=== PATIENT | male | born 1955 | race Caucasian/White ===

== ENCOUNTER 2016-09-30 15:19 | Emergency (ER) | payer OTHER ==
[2016-09-30] MEDS ORDERED: Permethrin 5% Cream(60 gm) TOP ONE (15:43)
--- NOTE | 2016-09-30 15:52 | C.PDOC ---
History Of Present Illness 61-year-old homeless male, PMHx includes EtOH Abuse, presents to the emergency department with complaints of right testicular swelling and left knee pain over the past few months. Patient denies any new symptoms at this time. No weakness/ numbness, fevers, chills, dysuria, hematuria, back pain or any other associated symptoms. No other complaints at this time. Time Seen by Provider: 09/30/16 15:25 Chief Complaint (Nursing): Substance Abuse Past Medical History Reviewed: Historical Data, Nursing Documentation, Vital Signs Vital Signs: Last Vital Signs Temp 98 F 09/30/16 17:52 Pulse 94 H 09/30/16 17:52 Resp 18 09/30/16 17:52 BP 127/76 09/30/16 17:52 Pulse Ox 94 L 09/30/16 17:52 - Medical History PMH: Hiatal Hernia Family History: States: Unknown Family Hx - Social History Hx Tobacco Use: Yes Hx Alcohol Use: Yes Hx Substance Use: No (DENIED) - Immunization History Hx Tetanus Toxoid Vaccination: No Hx Influenza Vaccination: No Hx Pneumococcal Vaccination: No Review Of Systems Except As Marked, All Systems Reviewed And Found Negative. Constitutional: Negative for: Fever, Chills Respiratory: Negative for: Shortness of Breath Gastrointestinal: Negative for: Nausea, Vomiting Genitourinary: Positive for: Other (testicular swelling, right.). Negative for : Dysuria, Frequency, Incontinence, Hematuria Musculoskeletal: Positive for: Leg Pain Skin: Negative for: Rash Neurological: Negative for: Weakness, Numbness, Headache, Dizziness Physical Exam - Physical Exam Appears: Non-toxic, No Acute Distress, Other (disheveled) Skin: Warm, Dry, Rash (scattered erythematous macular rash with excoriation to lower abdomen, dorsal hands, lower legs. No cellulitis.) Head: Atraumatic, Normacephalic Eye(s): bilateral: PERRL Oral Mucosa: Moist Neck: Trachea Midline, Supple Chest: Symmetrical Cardiovascular: Rhythm Regular Respiratory: No Decreased Breath Sounds, No Accessory Muscle Use, No Rales, No Rhonchi, No Stridor, No Wheezing Gastrointestinal/Abdominal: Soft, No Tenderness, No Distention, No Guarding Back: No CVA Tenderness Male Genital: Other (LARGE RIGHT INGUINAL HERNIA, NON-REDUCIBLE) Extremity: Tenderness (mild, left knee with mild diffuse edema. no palpable deformity. No erythema, no warmth.), No Pedal Edema, No Calf Tenderness, No Deformity Extremity: Bilateral: Atraumatic Neurological/Psych: Oriented x3, Normal Speech ED Course And Treatment O2 Sat by Pulse Oximetry: 94 - CT Scan/US testicular US Other Rad Studies (CT/US): Radiology Report Reviewed CT/US Interpretation: Creator : Keven Ware. Dictator : Keven Ware. Solution Lead : Visual Training Aide : Keven Ware. Approver2 : Report Date : 2016 16:59:09. My Comment : . HISTORY: Right testicular pain. TECHNIQUE : Realtime sonography through the scrotum with color and doppler flow. COMPARISON: None Available. FINDINGS: RIGHT TESTICLE: Measures 4.7 x 1.6 x 3.7 cm. Normal echotexture and flow. RIGHT EPIDIDYMIS: Epididymal head measures 1 x 0.6 x 0.7 cm. Grossly unremarkable appearance with normal flow. LEFT TESTICLE: Measures 5.6 x 3.1 x 2.4 cm. Normal echotexture and flow. LEFT EPIDIDYMIS: Epididymal head measures 1.3 x 1.1 x 0.9 cm. Grossly unremarkable appearance with normal flow. HYDROCELE: Right-sided hydrocele seen. VARICOCELE: None. OTHER FINDINGS: This suspicious for right-sided inguinal hernia with bowel extending to the right aspect of the scrotum sac. IMPRESSION : No evidence of torsion. Heterogeneous echotexture of the testicles without evidence of discrete mass lesion. Right-sided hydrocele and possible right hernia with bowel extending to the right aspect of the scrotum sac. If clinically warranted further assessment by CT may be obtained. Progress Note: On re-evaluation, pt is resting comfortably, not in any apparent distress. Afebrile, hemodynamicaly stable. Non-toxic. Abd: benign, (-) guarding, (-) rebound, (-) localized tenderness. : pt has clinical findings c /w Right inguinal hernia, chronic, noted on previous exams, no evidence of strangulation. NO skin changes. Case discussed, results review with ED attending, no further testing recommend, discharge with outpt f/u recommend at this time. Testicular US results review and B/L testicular blood flow noted. Case discussed and pt was evaluated by fixed income trading vice president, no acute abnormalities and discharge with outpt /elective surgery recommend. Pt has clinical findings c/w chronic Right inguinal hernia, left knee arthralgia s/o old trauma, rash r/o scabies, homeless. Pt advised. ref. to F/u with Clinic and Surgery in 1-2 days fo rre-eavl. return to ED if any worsening or new changes. Medical Decision Making Medical Decision Making: Prior Visits Notes and records from previous visits were reviewed. Patient seen and evaluated in ED for same complaint, multiple times in the past. Disposition Counseled Patient/Family Regarding: Studies Performed, Diagnosis, Need For Followup - Disposition Referrals: [facility] [Outside] [facility] [Outside] Disposition: HOME/ ROUTINE Disposition Time: 17:02 Condition: STABLE Instructions: Scabies (ED), Inguinal Hernia (ED), Knee Pain (ED), Groin Pain ( ED) - Clinical Impression Clinical Impression: Inguinal hernia, Arthralgia of knee, Scabies - Scribe Statement The provider has reviewed the documentation as recorded by the Nazario Casillas All medical record entries made by the Amandaibpb were at my direction and personally dictated by me. I have reviewed the chart and agree that the record accurately reflects my personal performance of the history, physical exam, medical decision making, and the department course for this patient. I have also personally directed, reviewed, and agree with the discharge instructions and disposition.
[2016-09-30 16:14] VITALS: RESP 18; O2SAT 94
--- NOTE | 2016-09-30 17:00 | US ---
HISTORY: Right testicular pain TECHNIQUE: Realtime sonography through the scrotum with color and doppler flow. COMPARISON: None Available. FINDINGS: RIGHT TESTICLE: Measures 4.7 x 1.6 x 3.7 cm. Normal echotexture and flow. RIGHT EPIDIDYMIS: Epididymal head measures 1 x 0.6 x 0.7 cm. Grossly unremarkable appearance with normal flow. LEFT TESTICLE: Measures 5.6 x 3.1 x 2.4 cm. Normal echotexture and flow. LEFT EPIDIDYMIS: Epididymal head measures 1.3 x 1.1 x 0.9 cm. Grossly unremarkable appearance with normal flow. HYDROCELE: Right-sided hydrocele seen. VARICOCELE: None. OTHER FINDINGS: This suspicious for right-sided inguinal hernia with bowel extending to the right aspect of the scrotum sac IMPRESSION: No evidence of torsion. Heterogeneous echotexture of the testicles without evidence of discrete mass lesion. Right-sided hydrocele and possible right hernia with bowel extending to the right aspect of the scrotum sac. If clinically warranted further assessment by CT may be obtained.
[2016-09-30 17:45] LABS: URINE BILIRUBIN NEGATIVE (NEGATIVE); URINE BLOOD NEGATIVE (NEGATIVE); URINE COLOR Straw (YELLOW); URINE GLUCOSE (UA) NORMAL (Normal); URINE KETONE NEGATIVE (NEGATIVE); URINE LEUKOCYTE ESTERASE NEG Leu/uL (Negative); URINE PROTEIN NEGATIVE (NEGATIVE); URINE UROBILINOGEN NORMAL mg/dL (0.2-1.0); WBC URINE < 1 /hpf (0-5)
[2016-09-30 17:53] VITALS: BP 127/76; PULSE 94; TEMP 98
== END 2016-09-30 18:25 | disposition home or self-care (01) ==
LOC: C.ER 15:19
DX: K40.90 Unilateral inguinal hernia, without obstruction or gangrene, not specified as recurrent (principal); M25.562 Pain in left knee; B86 Scabies

== ENCOUNTER 2016-11-01 23:26 | Emergency (ER) | payer OTHER ==
[2016-11-02] MEDS ORDERED: Permethrin 5% Cream(60 gm) TOP ONE (01:35)
[2016-11-02 05:34] VITALS: BP 144/71; PULSE 101; RESP 16; TEMP 99.1; O2SAT 99
--- NOTE | 2016-11-02 05:45 | C.PDOC ---
History Of Present Illness Patient is a 61 year old male with a complaint of a diffuse pruritic rash. Patient states he is scratching all the time. As per triage nurse, patient had several bedbug appearing insects crawling out of his clothing. Denies fever, chills or SOB. Time Seen by Provider: 11/02/16 00:56 Chief Complaint (Nursing): Abnormal Skin Integrity History Per: Patient History/Exam Limitations: no limitations Onset/Duration Of Symptoms: Days Current Symptoms Are (Timing): Still Present Quality Of Symptoms: Itching Recent travel outside of the [place]: No Past Medical History Reviewed: Historical Data, Nursing Documentation, Vital Signs Vital Signs: Last Vital Signs Temp 99.1 F 11/02/16 05:33 Pulse 101 H 11/02/16 05:33 Resp 16 11/02/16 05:33 BP 144/71 11/02/16 05:33 Pulse Ox 99 11/02/16 05:46 - Medical History PMH: Hiatal Hernia Surgical History: No Surg Hx Family History: States: Unknown Family Hx - Social History Hx Tobacco Use: Yes Hx Alcohol Use: Yes Hx Substance Use: No (DENIED) - Immunization History Hx Tetanus Toxoid Vaccination: No Hx Influenza Vaccination: No Hx Pneumococcal Vaccination: No Review Of Systems Constitutional: Negative for: Fever, Chills Respiratory: Negative for: Shortness of Breath Skin: Positive for: Rash (Pruritic) Physical Exam - Physical Exam Appears: Non-toxic Skin: Warm, Dry, Rash (Diffuse, dry, scaly, excoriated) Head: Atraumatic, Normacephalic Oral Mucosa: Moist Chest: Symmetrical, No Tenderness Cardiovascular: Rhythm Regular, No Murmur Respiratory: Normal Breath Sounds, No Rales, No Rhonchi, No Wheezing Gastrointestinal/Abdominal: Soft, No Tenderness Male Genital: Other (Large inguinal scrotal hernia, non tender and non incarcerated) Neurological/Psych: Oriented x3, Normal Speech, Normal Cognition ED Course And Treatment O2 Sat by Pulse Oximetry: 99 (Room air) Pulse Ox Interpretation: Normal Progress Note: Permethrin cream applied. Disposition - Disposition Disposition: HOME/ ROUTINE Disposition Time: 06:34 Condition: STABLE Prescriptions: Hydrocortisone 1% Cream [Cortizone 1% Cream] 1 appl TP BID #2 tube - Clinical Impression Clinical Impression: Scabies - Scribe Statement The provider has reviewed the documentation as recorded by the Scribe Seth Mcleod All medical record entries made by the Amandaibpb were at my direction and personally dictated by me. I have reviewed the chart and agree that the record accurately reflects my personal performance of the history, physical exam, medical decision making, and the department course for this patient. I have also personally directed, reviewed, and agree with the discharge instructions and disposition.
== END 2016-11-02 06:59 | disposition home or self-care (01) ==
LOC: C.ER 23:26
DX: B86 Scabies (principal)

== ENCOUNTER 2017-05-19 23:11 | Emergency (ER) | payer OTHER ==
[2017-05-19 23:27] VITALS: BP 142/73; PULSE 100; RESP 20; TEMP 98.7; O2SAT 99
[2017-05-19] MEDS ORDERED: Permethrin 5% Cream(60 gm) TOP ONE (23:40)
--- NOTE | 2017-05-20 00:05 | C.PDOC ---
History Of Present Illness 62 year old homeless man presents to the ED for evaluation of generalized skin rash for the past 2 weeks. Patient denies fever, chills, nausea, vomiting. Pt has not used any other meds for the itching. Time Seen by Provider: 05/19/17 23:30 Chief Complaint (Nursing): Allergic Reaction History Per: Patient History/Exam Limitations: no limitations Onset/Duration Of Symptoms: Days Current Symptoms Are (Timing): Still Present Location Of Injury: Right: Arm, Leg, Left: Arm, Leg, Anterior: Abdomen, Arm, Leg , Posterior: Arm, Leg Quality Of Symptoms: Itching Recent travel outside of the [place]: No Additional History Per: Patient Past Medical History Reviewed: Historical Data, Nursing Documentation, Vital Signs Vital Signs: Last Vital Signs Temp 98.7 F 05/19/17 23:24 Pulse 100 H 05/19/17 23:24 Resp 20 05/19/17 23:24 BP 142/73 05/19/17 23:24 Pulse Ox 99 05/20/17 00:17 - Medical History PMH: Hiatal Hernia Surgical History: No Surg Hx Family History: States: Unknown Family Hx - Social History Hx Tobacco Use: Yes Hx Alcohol Use: Yes Hx Substance Use: No (DENIED) - Immunization History Hx Tetanus Toxoid Vaccination: No Hx Influenza Vaccination: No Hx Pneumococcal Vaccination: No Review Of Systems Constitutional: Negative for: Fever, Chills Respiratory: Negative for: Cough, Shortness of Breath Gastrointestinal: Negative for: Nausea, Vomiting Skin: Positive for: Rash Neurological: Negative for: Weakness, Numbness Physical Exam - Physical Exam Appears: Non-toxic, Unkempt Skin: Warm, Dry, Other (scattered excoriations diffusely > to both upper and lower extremities ) Head: Atraumatic, Normacephalic Nose: No Discharge, No Deformity Oral Mucosa: Moist Lips: Normal Appearing, No Swelling Neck: Normal ROM, Supple Respiratory: Normal Breath Sounds, No Wheezing Extremity: Normal ROM Neurological/Psych: Oriented x3, Normal Speech, Normal Cognition Gait: Steady ED Course And Treatment O2 Sat by Pulse Oximetry: 99 (On RA) Pulse Ox Interpretation: Normal Progress Note: Plan: - Permethrin 5% 60 gm TOP given to pt with instructions on application Disposition Counseled Patient/Family Regarding: Diagnosis, Need For Followup, Rx Given - Disposition Referrals: [facility] [Outside] Disposition: HOME/ ROUTINE Disposition Time: 00:14 Condition: STABLE Additional Instructions: Use cream from neck to feet and leave on for 10 hrs and rinse in morning Return to ER if worse Instructions: Bed Bugs (ED) Forms: [facility] (Mohawk) - Clinical Impression Clinical Impression: Bedbug bite - PA / DEVELOPMENT EDUCATOR / Resident Statement MD/DO has reviewed & agrees with the documentation as recorded. - Scribe Statement The provider has reviewed the documentation as recorded by the Scribe John Carreno All medical record entries made by the Scribe were at my direction and personally dictated by me. I have reviewed the chart and agree that the record accurately reflects my personal performance of the history, physical exam, medical decision making, and the department course for this patient. I have also personally directed, reviewed, and agree with the discharge instructions and disposition.
== END 2017-05-20 00:21 | disposition home or self-care (01) ==
LOC: C.ER 23:11
DX: S80.862A Insect bite (nonvenomous), left lower leg, initial encounter (principal); S80.861A Insect bite (nonvenomous), right lower leg, initial encounter; S40.862A Insect bite (nonvenomous) of left upper arm, initial encounter; S40.861A Insect bite (nonvenomous) of right upper arm, initial encounter; W57.XXXA Bitten or stung by nonvenomous insect and other nonvenomous arthropods, initial encounter; Z59.0 Homelessness; Z72.0 Tobacco use

== ENCOUNTER 2017-08-11 00:52 | Emergency (ER) | payer OTHER ==
[2017-08-11 00:59] VITALS: BP 130/80; PULSE 80; RESP 14; TEMP 97.5; O2SAT 98
[2017-08-11] MEDS ORDERED: Permethrin 5% Cream(60 gm) TOP ONE (01:12)
--- NOTE | 2017-08-11 01:14 | C.PDOC ---
History Of Present Illness 62 years old homeless male presents to ED for complaints of itching to body for long time. Patient also states that he is looking for a place to rest. Denies any other physical complaints. Time Seen by Provider: 08/11/17 01:04 Chief Complaint (Nursing): Abnormal Skin Integrity History Per: Patient History/Exam Limitations: no limitations Onset/Duration Of Symptoms: Hrs Current Symptoms Are (Timing): Still Present Quality Of Symptoms: Itching Recent travel outside of the [place]: No Past Medical History Reviewed: Historical Data, Nursing Documentation, Vital Signs Vital Signs: Last Vital Signs Temp 97.5 F L 08/11/17 00:57 Pulse 80 08/11/17 00:57 Resp 14 08/11/17 00:57 BP 130/80 08/11/17 00:57 Pulse Ox 98 08/11/17 02:33 - Medical History PMH: Hiatal Hernia Family History: States: Unknown Family Hx - Social History Hx Tobacco Use: Yes Hx Alcohol Use: Yes Hx Substance Use: No (DENIED) - Immunization History Hx Tetanus Toxoid Vaccination: No Hx Influenza Vaccination: No Hx Pneumococcal Vaccination: No Review Of Systems Constitutional: Negative for: Fever, Chills Gastrointestinal: Negative for: Nausea, Vomiting, Abdominal Pain, Diarrhea Skin: Positive for: Other (itching to body ) Neurological: Negative for: Weakness, Numbness Psych: Negative for: Suicidal ideation Physical Exam - Physical Exam Appears: Non-toxic, No Acute Distress, Unkempt, Other (malodorous) Skin: Rash (papular erythematous rash and scabs to bilateral arms, back and lower extremities) Head: Atraumatic, Normacephalic Eye(s): bilateral: Normal Inspection Oral Mucosa: Moist Neck: Normal ROM, Supple Chest: Symmetrical, No Tenderness Cardiovascular: Rhythm Regular Respiratory: Normal Breath Sounds, No Decreased Breath Sounds, No Rales, No Rhonchi, No Wheezing Neurological/Psych: Oriented x3, Normal Speech Gait: Steady ED Course And Treatment O2 Sat by Pulse Oximetry: 98 (RA) Pulse Ox Interpretation: Normal Medical Decision Making Medical Decision Making: Patient with itchy rash appears to be scabies. Permethrin cream ordered for patient. He does not want to get undressed. Cream given. Patient stable for discharge. Disposition Counseled Patient/Family Regarding: Diagnosis, Need For Followup, Rx Given - Disposition Referrals: [facility] [Outside] [facility] [Outside] Disposition: HOME/ ROUTINE Disposition Time: 01:50 Condition: GOOD Instructions: Scabies (DC) Forms: [facility] (East Timorese) - POA Present On Arrival: None - Clinical Impression Clinical Impression: Homelessness, Scabies - PA / EARLY BREASTFEEDING CARE SPECIALIST / Resident Statement MD/DO has reviewed & agrees with the documentation as recorded. - Scribe Statement The provider has reviewed the documentation as recorded by the Scribe Kelly Colón All medical record entries made by the Amandaibpb were at my direction and personally dictated by me. I have reviewed the chart and agree that the record accurately reflects my personal performance of the history, physical exam, medical decision making, and the department course for this patient. I have also personally directed, reviewed, and agree with the discharge instructions and disposition.
== END 2017-08-11 01:55 | disposition home or self-care (01) ==
LOC: C.ER 00:52
DX: B86 Scabies (principal); Z59.0 Homelessness

== ENCOUNTER 2017-08-19 23:56 | Emergency (ER) | payer OTHER ==
[2017-08-20 00:07] VITALS: O2SAT 96
--- NOTE | 2017-08-20 01:58 | C.PDOC ---
History Of Present Illness 62 y/o M presents to ED asking for place to sleep. Contrary to triage, patient denies any pain and states he just wishes to sleep. Time Seen by Provider: 08/20/17 01:46 Chief Complaint (Nursing): Lower Extremity Problem/Injury Past Medical History Vital Signs: Last Vital Signs Temp 98.3 F 08/20/17 00:04 Pulse 82 08/20/17 00:04 Resp 20 08/20/17 00:04 BP Pulse Ox 96 08/20/17 00:04 - Medical History PMH: Hiatal Hernia Family History: States: Unknown Family Hx - Social History Hx Tobacco Use: Yes Hx Alcohol Use: Yes Hx Substance Use: No (DENIED) - Immunization History Hx Tetanus Toxoid Vaccination: No Hx Influenza Vaccination: No Hx Pneumococcal Vaccination: No Review Of Systems Except As Marked, All Systems Reviewed And Found Negative. Constitutional: Negative for: Fever Respiratory: Negative for: Shortness of Breath Physical Exam - Physical Exam Additional Physical Exam Comments: Gen: NAD Head: AT CV: Regular rate Lungs: No accessory muscle use Neuro: Alert ED Course And Treatment O2 Sat by Pulse Oximetry: 96 Disposition - Disposition Disposition: HOME/ ROUTINE Disposition Time: 01:57 Condition: STABLE Instructions: Alcohol Abuse and Alcoholism (DC) - Clinical Impression Clinical Impression: Homelessness
[2017-08-20 06:19] VITALS: BP 119/67; PULSE 101; RESP 22; TEMP 98
--- NOTE | 2017-08-20 14:48 | RAD ---
PROCEDURE: Left knee dated 08/20/2017 HISTORY: Pain. COMPARISON: None. FINDINGS: BONES: No evidence of acute displaced fracture nor dislocation. JOINTS: Degenerative osteoarthritis most notably affecting the medial and patellofemoral compartments. There is also a small elliptical shaped intra-articular loose body within the anterior joint space margin. JOINT EFFUSION: Very large suprapatellar joint effusion. OTHER FINDINGS: None. IMPRESSION: No definitive evidence of acute displaced fracture nor dislocation. Tricompartmental degenerative osteoarthritis with intra-articular loose body. Very large suprapatellar joint effusion. Consider followup MRI to assess for internal derangement. Note that this report was placed in PA review folder for followup.
== END 2017-08-20 06:14 | disposition home or self-care (01) ==
LOC: C.ER 23:56
DX: Z59.0 Homelessness (principal)

== ENCOUNTER 2017-09-15 03:13 | Emergency (ER) | payer OTHER ==
[2017-09-15 03:26] VITALS: RESP 20
--- NOTE | 2017-09-15 04:44 | C.PDOC ---
History Of Present Illness Pt was BIBEMS due to public alcohol intoxication. Time Seen by Provider: 09/15/17 03:29 Chief Complaint (Nursing): Substance Abuse History Per: Patient, EMS History/Exam Limitations: intoxication Onset/Duration Of Symptoms: Unknown Current Symptoms Are (Timing): Still Present Suicide/Self Injury Attempted (Context): None Modifying Factor(s): Alcohol Severity: Moderate Associated Symptoms: denies: Suicidal Thoughts, Suicidal Plan Additional History Per: Prior Records Past Medical History Reviewed: Historical Data, Nursing Documentation, Vital Signs Vital Signs: Last Vital Signs Temp 98.5 F 09/15/17 03:22 Pulse 95 H 09/15/17 03:22 Resp 20 09/15/17 03:22 BP 157/91 H 09/15/17 03:22 Pulse Ox 98 09/15/17 04:44 - Medical History PMH: Hiatal Hernia Other PMH: Alcohol abuse Family History: States: Unknown Family Hx - Social History Hx Tobacco Use: Yes Hx Alcohol Use: Yes Hx Substance Use: No (DENIED) - Immunization History Hx Tetanus Toxoid Vaccination: No Hx Influenza Vaccination: No Hx Pneumococcal Vaccination: No Review Of Systems Review Of Systems: ROS cannot be obtained secondary to pt's inabilty to answer questions. Physical Exam - Physical Exam Appears: Non-toxic, No Acute Distress, Other (AOB, intoxicated) Skin: Normal Color, Warm, Dry Head: Atraumatic Eye(s): bilateral: PERRL Neck: Normal ROM, No Midline Cervical Tenderness, No Step Off Deformity, Supple Cardiovascular: Rhythm Regular Respiratory: Normal Breath Sounds, No Accessory Muscle Use Gastrointestinal/Abdominal: Soft Neurological/Psych: Eyes Open With Command, Other (Moving all extremities) Gait: Unable To Assess ED Course And Treatment O2 Sat by Pulse Oximetry: 98 Pulse Ox Interpretation: Normal Progress Note: Pt is now AAOx3. Steady gait. Clinically sober. Reevaluation Time: 06:06 Reassessment Condition: Improved Disposition Counseled Patient/Family Regarding: Diagnosis, Need For Followup - Disposition Referrals: at [facility] [Outside] Disposition: HOME/ ROUTINE Disposition Time: 06:06 Condition: IMPROVED Additional Instructions: Avoid alcohol and other illicit drugs. Follow up with your doctor or in the clinic. Return to the ER if you develop worsening of symptoms or if you have any other concerns. Instructions: Alcohol Abuse and Alcoholism (DC) - Clinical Impression Clinical Impression: Alcohol abuse
[2017-09-15 06:48] VITALS: BP 140/78; PULSE 76; TEMP 98; O2SAT 100
== END 2017-09-15 06:48 | disposition home or self-care (01) ==
LOC: C.ER 03:13
DX: F10.10 Alcohol abuse, uncomplicated (principal)

== ENCOUNTER 2018-08-13 23:18 | Emergency (ER) | payer SELFPAY ==
[2018-08-13 23:53] VITALS: RESP 16
--- NOTE | 2018-08-14 01:07 | C.PDOC ---
History Of Present Illness 63 year old male brought in via EMS for public intoxication, admits to drinking today. Denies any complaints at this time. Time Seen by Provider: 08/14/18 00:11 Chief Complaint (Nursing): Substance Abuse History Per: Patient History/Exam Limitations: no limitations Onset/Duration Of Symptoms: Hrs Current Symptoms Are (Timing): Still Present Suicide/Self Injury Attempted (Context): None Modifying Factor(s): Alcohol Involuntary Hold By: None Recent travel outside of the [place]: No Past Medical History Reviewed: Historical Data, Nursing Documentation, Vital Signs Vital Signs: Last Vital Signs Temp 98.5 F 08/13/18 23:45 Pulse 98 H 08/13/18 23:45 Resp 16 08/13/18 23:45 BP 117/72 08/13/18 23:45 Pulse Ox 96 08/13/18 23:45 - Medical History PMH: Hiatal Hernia Family History: States: Unknown Family Hx - Social History Hx Tobacco Use: Yes Hx Alcohol Use: Yes Hx Substance Use: No (DENIED) - Immunization History Hx Tetanus Toxoid Vaccination: No Hx Influenza Vaccination: No Hx Pneumococcal Vaccination: No Review Of Systems Constitutional: Negative for: Fever, Chills Cardiovascular: Negative for: Chest Pain, Palpitations Respiratory: Negative for: Cough, Shortness of Breath Gastrointestinal: Negative for: Nausea, Vomiting Neurological: Negative for: Weakness, Numbness Physical Exam - Physical Exam Appears: Non-toxic, Other (ETOH on breath, no sign of injury) Skin: Normal Color, Warm Head: Atraumatic, Normacephalic Eye(s): bilateral: Normal Inspection Oral Mucosa: Moist Neck: Normal, Supple Chest: Symmetrical, No Tenderness Cardiovascular: Rhythm Regular Respiratory: Normal Breath Sounds, No Rales, No Rhonchi, No Wheezing Gastrointestinal/Abdominal: Soft, No Tenderness Extremity: Normal ROM (x4) Neurological/Psych: Oriented x3, Normal Speech ED Course And Treatment O2 Sat by Pulse Oximetry: 96 (Room air) Pulse Ox Interpretation: Normal Medical Decision Making Medical Decision Making: permethrin given for lice. in am steady gait stable for dc Disposition - Disposition Disposition: HOME/ ROUTINE Disposition Time: 04:24 Condition: STABLE Forms: [facility] (Albanian) - Clinical Impression Clinical Impression: Alcohol abuse, Body lice infestation, Homelessness - Scribe Statement The provider has reviewed the documentation as recorded by the Scribe Seth Belles All medical record entries made by the Scribpb were at my direction and personally dictated by me. I have reviewed the chart and agree that the record accurately reflects my personal performance of the history, physical exam, medical decision making, and the department course for this patient. I have also personally directed, reviewed, and agree with the discharge instructions and disposition.
[2018-08-14 04:35] VITALS: BP 133/68; PULSE 99; TEMP 98.8
[2018-08-14] MEDS ORDERED: Permethrin 1% Kit 59 ML BOTTLE TOP ONE (05:18)
[2018-08-16 09:42] VITALS: O2SAT 96
== END 2018-08-14 07:18 | disposition home or self-care (01) ==
LOC: C.ER 23:18
DX: F10.10 Alcohol abuse, uncomplicated (principal); B85.1 Pediculosis due to Pediculus humanus corporis; Z59.0 Homelessness